=== PATIENT | male | born 1955 | race Caucasian/White ===

== ENCOUNTER 2024-08-30 09:26 | Emergency (ER) | payer OTHER, MEDICARE, SELFPAY ==
--- NOTE | ~2024-08-30 | CT_ITS ---
EXAMINATION: CT HEAD WITHOUT CONTRAST CLINICAL INFORMATION: Fall with head strike. On thinners. COMPARISON: None available. TECHNIQUE: Contiguous axial imaging was performed from the skull base to vertex without intravenous administration of contrast. This CT examination was performed using dose optimization techniques as appropriate, variously including the following: *Automated exposure control *Adjustment of mA and/or kV according to patient size (this includes techniques or standardized protocols for targeted exams where dose is matched to indication/reason for exam; i.e. extremities or head) *Use of iterative reconstruction technique DLP: 727 mGy-cm FINDINGS: No intracranial hemorrhage, large infarction, or mass lesion is seen. No extra-axial collection is appreciated. The ventricles are normal in size and configuration without evidence of hydrocephalus. Calcification of the distal aspects of the vertebral arteries and internal carotid arteries bilaterally. Evidence of bilateral maxillary antrostomies. Mild mucosal thickening involving the paranasal sinuses bilaterally. The mastoid air cells are clear. Bilateral lens extractions. CT/CT head/brain wo IV con IMPRESSION: No acute intracranial finding. Electronically signed by: Bj Vickers MD 08/30/2024 02:27 PM EDT
[2024-08-30 09:29] VITALS: BP 146/83; PULSE 71; RESP 16; TEMP 36.1; O2SAT 98; BMI 31.4
--- NOTE | 2024-08-30 10:06 | ED_ITS ---
HPI - General Adult General Chief complaint: Head Injury Stated complaint: Head injury Time Seen by Provider: 08/30/24 10:05 Source: patient Mode of arrival: ambulatory Limitations: no limitations History of Present Illness ED Provider: ankur [facility] narrative: Patient is a 68 yo male with PMH of what he reports as a recent heart attack two weeks ago, denies being on blood thinners except I take an aspirin every day presenting with laceration to scalp. Reports about an hour ago he hit his head on a pipe, he had thought he ducked his head low enough to clear it. Denies any LOC, vision changes, blurry, N/V, reports ringing in ears however indicates this is a chronic issue. Drove himself to the ED for evaluation due to the bleeding, which he was able to stop prior to arrival. Denies headache at current, reports pain at site of laceration only. Unsure last Tdap. complaint: head laceration Onset (ago): hour(s) Location: head Radiation: non-radiation Severity: mild Associated symptoms: denies other symptoms Treatments prior to arrival: none Related Data Allergies Allergy/AdvReac Type Severity Reaction Status Date / Time penicillin G [Penicillin G] Allergy Unknown HIVES Verified 08/30/24 09:32 Review of Systems 2 Review of Systems: As per HPI Yes all other systems are reviewed and are negative Constitutional: Constitutional: Reports as per HPI [facility] Social History Social History Advance Directives: No Advance Directives Information Provided: Yes Do you have a plan to hurt others: No Plan Physical Exam ED Vital Signs: Vital Signs - 24 hr 08/30/24 09:29 08/30/24 11:32 Temperature 97 F 97 F Pulse Rate 71 71 Respiratory Rate 16 16 Blood Pressure 146/83 H 146/83 H Pulse Oximetry 98 98 Oxygen Delivery Method Room Air Room Air BMI result Body Mass Index 31.4 Vital signs have been reviewed and appear to be correct. Blood pressure normal. Heart rate normal. Respiratory rate normal. Temperature normal. Oxygen saturation normal. Const General: cooperative, healthy appearing and no acute distress Orientation/consciousness: oriented to person, oriented to place, oriented to time and patient oriented x3 Limitations: no limitations HENMT Head: Yes normocephalic and Yes laceration Head images: 2 1. 2cm linear laceration, no active bleeding Ears: external ears normal General nose exam: Normal external nose present Face and sinus: Yes face symmetric Mouth: oropharynx normal and moist mucous membranes Throat: Yes uvula midline Eyes General: appearance normal, both eyes and all related structures Pupils: Equal, round and reactive pupils present and Pupil accommodation reflex normal EOM: EOMs intact bilaterally Direct Ophthalmoscopy: normal light reflex Neck Neck: Yes normal visual inspection and Yes supple Resp Effort & Inspection: normal respiratory effort and able to speak in complete sentences Auscultation: clear to auscultation bilaterally Cardio Rate: regular rate Rhythm: regular rhythm Heart sounds: S1 normal heart sound present and S2 normal heart sound present GI Palpation (GI): Soft to palpation and nontender Auscultation: normoactive bowel sounds General: Yes no CVA tenderness Back/Spine/Pelvis Back: no CVA tenderness Skin General skin exam: elasticity normal and turgor normal Neuro General: oriented to person, oriented to place, oriented to time, patient oriented x3, gait normal, tone normal, moves all extremities, Normal light touch and pain sensation, no focal motor deficits, CN's II-XI intact bilaterally and deep tendon reflexes 2+ bilaterally Cranial nerves: Yes Equal, round and reactive pupils present Cognition (Neuro): normal cognition Motor exam (neuro): 5/5 motor strength present throughout, Normal motor muscle tone present throughout and Motor abnormalities not present Coordination: [id number] test normal Extrem General: Yes full ROM, Yes no pedal edema and Yes no calf tenderness Psych Mental Status: mental status grossly normal Affect: normal affect Thought process: Normal thought process present Medications Administered Discontinued Medications Generic Name Dose Route Start Last Admin Trade Name Freq PRN Reason Stop Dose Admin Diphtheria/Tetanus/Acell Pertussis 0.5 ml 08/30/24 10:06 08/30/24 10:38 Diphth,Pertus(Acell),Tet Adult 0.5 Ml Syringe IM 08/30/24 10:07 0.5 ml .ONCE ONE Administration Lidocaine HCl 1 appl 08/30/24 10:31 08/30/24 10:37 Lidocaine 4 % Cream Kit TOPICAL 08/30/24 10:32 1 appl ONCE ONE Administration Protocol Procedures Laceration Laceration 1: Site: scalp Size (cm): 2 Description: linear Depth: simple, single layer Local Anesthetic: other anesthetic (LMX) Pre-repair: wound explored, irrigated extensively and deep structures intact Skin layer closed with: other (mamadou) Number of sutures: 4 Medical Decision Making Medical Decision Making [facility] Narrative: Patient is a 68 yo male with PMH of what he reports as a recent heart attack two weeks ago, denies being on blood thinners except I take an aspirin every day presenting with laceration to scalp. On exam patient is awake, A+Ox3, VS WNL, afebrile, normal neurological exam without focal deficits, physical exam findings as above. Given reported symptoms and physical exam findings, initial differential includes laceration of scalp. Less likely ICH/skull fracture, but given age will obtain CT head. Laceration repaired with mamadou as per procedure note. Patient tolerated well. Tdap updated. Patient stating that he needs to leave as he is supposed to be watching his grandson, does not want to wait for CT results. * The patient has decided to leave against medical advice because he needs to watch grandson. * They have normal mental status and adequate capacity to make medical decisions. * The risks have been explained to the patient, including ICH, worsening illness, chronic pain, permanent disability and . * The benefits of remaining for results have also been explained, including the availability and proximity of nurses, physicians, monitoring, diagnostic testing, and treatment. * The patient was able to understand and state the risks and benefits of waiting for results. This was witnessed by nurse Rahel Higgins, [employer] student, and me. * They had the opportunity to ask questions about their medical condition. * The patient was treated to the extent that they would allow and knows that they may return for care at any time. * Patient signed AMA form. Differential Diagnosis Differential Diagnoses: The differential diagnosis associated with the presentation includes As per [facility] Admission/Observation Consideration of admission/observation: Escalation of care including admission/observation considered Patient would have been admitted to the hospital had their work up had any findings where hospital admission was appropriate and their clinical presentation warranted hospital admission. Independent Interpretation I performed an independent interpretation of an: CT Scan Interpretation: No evidence of ICH or other acute abnormality on CT head. Radiology Impression Discussion of test interpretation with radiology: I have reviewed the radiologist's reading. Radiologist Impression: CT/CT head/brain wo IV con IMPRESSION: No acute intracranial finding. External Record Review External record reviewed: Inpatient record, Office record and Outpatient record Discharge Plan Discharge Clinical Impression: Laceration of head Patient Disposition: Left Against Medical Advice Instructions: Laceration (DC), Staple Care (ED), Head Laceration (ED) Additional Instructions: You have been evaluated in the emergency department today for a laceration to your scalp. Your laceration was repaired in the emergency department with 4 mamadou. Please keep the area surrounding the laceration clean and dry for the next 24 hours. After that please assess the wound daily. Keep the area out of direct sunlight for the next 6 months to help prevent scarring. You should have the mamadou removed in 7-10 days. If you develop fever, redness, swelling at the site of your laceration, or thick yellow drainage please come back to the ER for a wound check. Stand Alone Forms: Against Medical Advice Interventions: ED Discharge Assessment Last Done: 08/30/24 11:32 Discharge Date/Time: 08/30/24 11:33 Print Language: Guyanese
[2024-08-30] MEDS: Lidocaine 4 % Cream KIT 1 APPL TOPICAL (10:37)
[2024-08-30] MEDS: Diphth,Pertus(ACell),Tet Adult 0.5 ML SYRINGE IM (10:38)
--- NOTE | 2024-08-30 11:31 | PC.NURSE ---
PT did not want to wait for CT scan results and anted to leave AMA, pt aware of risks leaving AMA. AMA from signed and witness signatures provided.
[2024-08-30 11:32] VITALS: BP 146/83; PULSE 71; RESP 16; TEMP 36.1; O2SAT 98
== END 2024-08-30 11:33 | disposition left against medical advice (07) ==
PROVIDERS: Emergency Provider Emergency Medicine; PCP Family Medicine
DX: S01.01XA Laceration without foreign body of scalp, initial encounter (principal); W22.09XA Striking against other stationary object, initial encounter; Y93.9 Activity, unspecified; Y92.9 Unspecified place or not applicable; Y99.9 Unspecified external cause status; Z23 Encounter for immunization
CPT/HCPCS: 12001; 70450; 90471; 90715; 99283; 99284

== ENCOUNTER 2024-09-07 09:07 | Emergency (ER) | payer OTHER, MEDICARE, SELFPAY ==
[2024-09-07 09:18] VITALS: BP 123/64; PULSE 60; RESP 16; TEMP 36.4; O2SAT 95; BMI 32.4
--- NOTE | 2024-09-07 09:39 | ED_ITS ---
HPI - General Adult General Chief complaint: Wound/Laceration Stated complaint: Staple removal Time Seen by Provider: 09/07/24 09:32 Source: patient Mode of arrival: ambulatory Limitations: no limitations History of Present Illness ED Provider: Pradip Dumont PA-C HPI narrative: 68-year-old male history of asthma, hypertension, and diabetes presents to the ED for mamadou removal from scalp. Patient staple placed 10 days ago due to injury. Patient denies any headache, nausea, vomiting, dizziness pus discharge, foul odor, redness, fever, or chills. Patient denies any slurred speech, facial droop, loss of vision, paralysis of extremities. Related Data Allergies Allergy/AdvReac Type Severity Reaction Status Date / Time penicillin G [Penicillin G] Allergy Unknown HIVES Verified 09/07/24 09:20 Review of Systems 2 Review of Systems: Staple removal Yes all other systems are reviewed and are negative [facility] Social History Social History Advance Directives: No Advance Directives Information Provided: No Do you have a plan to hurt others: No Plan Physical Exam ED Vital Signs: Vital Signs - 24 hr 09/07/24 09:18 Temperature 97.6 F Pulse Rate 60 Respiratory Rate 16 Blood Pressure 123/64 Pulse Oximetry 95 Oxygen Delivery Method Room Air BMI result Body Mass Index 32.4 Const General: cooperative, healthy appearing, comfortable, no acute distress, well developed, alert, awake and Physically active Orientation/consciousness: patient oriented x3 HENMT Head: Yes normal to inspection, Yes No palpable skull fracture present, Yes normocephalic and Yes atraumatic Head images: 2 1. 4 mamadou in wound. Wound negative for erythema, pus discharge, foul odor, crepitus, ecchymosis, or tenderness. Wound healing. Eyes General: appearance normal, both eyes and all related structures Neck Neck: Yes normal visual inspection, Yes full ROM, Yes no lymphadenopathy, Yes no meningeal signs, Yes trachea midline, Yes supple, No anterior neck swelling and No tender Chest Chest palpation & inspection: normal inspection of the chest and normal palpation of entire chest wall Resp Effort & Inspection: normal respiratory effort and able to speak in complete sentences Auscultation: clear to auscultation bilaterally Cardio Jugular venous distension: no JVD Heart sounds: S1 normal heart sound present and S2 normal heart sound present GI Inspection: Yes normal to inspection Palpation (GI): Soft to palpation, not firm, nontender, no guarding and not rigid General: Yes no CVA tenderness Back/Spine/Pelvis Back: no CVA tenderness and No back tenderness Skin General skin exam: no rashes or lesions noted, elasticity normal and turgor normal Neuro General: patient oriented x3, gait normal, tone normal, moves all extremities, Normal light touch and pain sensation, no meningeal signs, no focal motor deficits, CN's II-XI intact bilaterally and normal sensation to monofilament Extrem General: Yes normal to inspection, Yes full ROM and Yes capillary refill normal Psych Appearance: grossly normal, well kempt and not disheveled Medical Decision Making Medical Decision Making MDM Narrative: 68-year-old male presents to ED for scalp staple removal. Wound negative for signs of infection. Neuro exam intact. Patient well-appearing. Four mamadou removed with staple removal. Area cleaned with alcohol prep and sterile saline. Patient informed worrisome signs and informed to return to the ED immediately. Not suspecting cellulitis, abscess, skull fracture, brain bleed, osteomyelitis, or any other life-threatening concerning etiologies. Differential Diagnosis Differential Diagnoses: The differential diagnosis associated with the presentation includes (Infected wound,) Admission/Observation Consideration of admission/observation: Escalation of care including admission/observation considered Independent Historian Clinical information obtained from an independent historian. History obtained from or confirmed by: Other (Patient) External Record Review External record reviewed: Other (Spouse) Discharge Plan Discharge Clinical Impression: Removal of mamadou Patient Disposition: Home, Self-Care Instructions: Staple Care (ED) Additional Instructions: Your mamadou were removed. Return to the ED immediately for any pus discharge, foul odor, redness, headache, dizziness, nausea, vomiting, or any other concerning symptoms. Recommend follow-up with primary care provider. Print Language: Tunisian
[2024-09-07 10:06] VITALS: BP 123/64; PULSE 60; RESP 16; TEMP 36.4; O2SAT 95
== END 2024-09-07 10:07 | disposition home or self-care (01) ==
PROVIDERS: Emergency Provider Emergency Medicine; PCP Family Medicine
DX: Z48.02 Encounter for removal of sutures (principal); S01.01XD Laceration without foreign body of scalp, subsequent encounter; X58.XXXD Exposure to other specified factors, subsequent encounter; E11.9 Type 2 diabetes mellitus without complications; I10 Essential (primary) hypertension
CPT/HCPCS: 99282